=== PATIENT | female | born 1950 | race Caucasian/White ===

== ENCOUNTER 2020-03-05 13:30 | Inpatient (IN) | payer MEDICARE ==
[~2020-03-05] VITALS: Ht 157.5 cm; Wt 77.0 kg
[~2020-03-05 13:30] MED LIST: AMLO2.5T2 PO; ANAS1TAB24 PO; ASPI-1265 PO; CALC-1072 PO; CETI10TA15 PO; CYAN500T64 PO; FLAX100032 PO; LACT1CAP65 PO; LEVO125T PO; MULT-1085 PO; OMEG-15 PO; TURM500C4 PO; UBID300C PO; VITA0.4T18 PO
[2020-03-10] VITALS (23 sets, daily range): BP systolic 85–144; BP diastolic 41–77
[2020-03-10] MEDS ORDERED: ringers solution, lacted 1,000 ML IV SCH ×2 (05:00→07:35)
[2020-03-10] MEDS ORDERED: famotidine 20mg tablet PO ONE (05:30)
[2020-03-10] MEDS ORDERED: ceFAZolin 2gm in dextrose, iso 50 ML IV ONE (05:30)
[2020-03-10] MEDS ORDERED: proCHLORperazine 10 MG/2 ml inj IV PRN (07:35)
[2020-03-10] MEDS ORDERED: morphine 2 MG/ML inj. syringe IV PRN (07:35)
[2020-03-10] MEDS ORDERED: ondansetron/PF 4mg/2ml inj IV PRN ×2 (07:35→16:40)
[2020-03-10] MEDS ORDERED: meperidine/PF 25mg/ml syringe IV PRN ×2 (07:35)
[2020-03-10] MEDS ORDERED: morphine 4 MG/ML inj SYRINge IV PRN (07:35)
[2020-03-10] MEDS ORDERED: propofol inj 20 ML IV ONE (11:55)
[2020-03-10] MEDS ORDERED: rocuronium 10mg/ml inj IV ONE ×2 (11:56→14:15)
[2020-03-10] MEDS ORDERED: fentaNYL /PF 50mcg/ml 5ml ampule ONE (11:57)
[2020-03-10] MEDS ORDERED: midazolam 2 mg/2 ml injection ONE (11:57)
[2020-03-10] MEDS ORDERED: BUPIVAcaine/PF 2.5 mg/ml (0.25%) 30ml vial ONE (12:00)
[2020-03-10] MEDS ORDERED: BUPIVACAINE liposomal/PF 13.3 MG/ML vial IM ONE (12:00)
[2020-03-10] MEDS ORDERED: BUPIVAcaine/PF 2.5mg/ml (0.25%) 10ml vial ONE (12:00)
[2020-03-10] MEDS ORDERED: ePHEDrine 50MG/ML INJ. ONE (12:08)
[2020-03-10] MEDS ORDERED: glycopyrrolate 0.2mg/ml inj ONE (12:08)
[2020-03-10] MEDS ORDERED: sevoflurane 250ml liquid IH ONE (12:08)
[2020-03-10] MEDS ORDERED: meperidine/PF 50mg/ml syringe ONE (16:21)
--- NOTE | 2020-03-10 16:30 | NUR ---
Received from OR via BED , accompanied by Anesthesiologist DR FIGUEROA and report given by Anesthesiolgist. PATIENT WAKING UP, S/S OF PAIN SEE EMAR, SHE IS STRUGGLING TO CLIMB OUT OF BED AND CONFUSED. CENTRAL LINE TO RIGHT NECK, ART LINE TO LUE, V/S WNL, NEUROVASCULAR CHECKS INTACT. F/C DRAINGNI CLEAR YELLOW URINE, 20G LUE, CHEST TUBE TO 20CM SUCTION RIGHT SIDE WITH NO LEAKS DETECTED CDI W/ MINIMAL OUTPUT AT THIS TIME. CHEST XRY TO FOLLOW W/ ABG.
[2020-03-10] MEDS: meperidine/PF 25mg/ml syringe IV PRN ×3 (16:39→16:55)
[2020-03-10] MEDS ORDERED: ketorolac trometh. 30mg/ml inj. IV ONE (16:40)
[2020-03-10] MEDS ORDERED: acetaminophen 1,000mg/100ml IV 100 ML IV ONE (16:40)
[2020-03-10] MEDS ORDERED: HYDROmorphone 1 mg/ml syringe IV PRN (16:45)
[2020-03-10 17:06] LABS: ABG BASE EXCESS -4.2 mmol/L (-2.0-2.0); ABG OXYGEN SATURATION 96.9 % (94-97); ABG PCO2 (T) 50.8 mmHg (32.0-45.0); ABG PO2 (T) 96.6 mmHg (75.0-100.0); FCOHb 0.1 % (0.0-3.9); FLOW 10 L/min; FO2Hb 96.8 % (94-97); TOTAL HEMOGLOBIN 12.6 G/dl (12.0-16.0)
--- NOTE | 2020-03-10 17:30 | NUR ---
PATIENT ORIENTED X4, INTERMITENT PAIN SEE EMAR, CENTRAL LINE TO RIGHT NECK, ART LINE TO LUE D/C, V/S WNL, NEUROVASCULAR CHECKS INTACT. F/C DRAINING CLEAR YELLOW URINE, 20G LUE, CHEST TUBE TO 20CM SUCTION RIGHT SIDE WITH NO LEAKS DETECTED CDI W/ MINIMAL OUTPUT AT THIS TIME.PATIENT TAKEN TO [facility] 311 WITH ALL BELONGINGS AND HOOKED UP TO MONITORS IN ROOM AND REPORT GIVEN TO JOCY MCNAIR WHO HAS TAKEN OVER PATIENT CARE.
--- NOTE | 2020-03-10 17:40 | NUR ---
RECEIVED PATIENT VIA BED FROM OR RECOVERY TO ROOM 311. PATIENT DROWSY; HOWEVER, RESPONDS APPROPRIATELY TO QUESTIONS. PLACED RT CHEST TUBE TO 20 CM SUCTION, NO AIR LEAK NOTED. CHEST TUBE AND DRESSING INTACT. TELE MONITOR SHOWS SINUS RHYTHM. BED LOW AND LOCKED CALL LIGHT IN REACH. REPORTED OFF TO [employer] OPERATOR. Addendum: 03/10/20 at 1927 by Linnette Nuñez RN Amended: Links added.
--- NOTE | 2020-03-10 18:50 | NUR ---
Patient in room MED 311. I have received report from Brad, and had the opportunity to ask questions and assume patient care.
[2020-03-10] MEDS: potassium CL 20mEq in D5-1/2NS 1,000 ML IV SCH (21:43)
[2020-03-10] MEDS: HYDROcodone/acetaminophen 10/325mg tab PO PRN (21:44)
[2020-03-11] MEDS ORDERED: ceFAZolin inj. 1,000 MG in dextrose 5%-water 50ml 50 ML IV SCH ×2
[2020-03-11] MEDS: potassium CL 20mEq in D5-1/2NS 1,000 ML IV SCH ×3 (00:40→16:40)
[2020-03-11] MEDS: gabapentin 400mg capsule PO SCH ×4 (00:59→23:55)
[2020-03-11] MEDS: ketorolac trometh. 30mg/ml inj. IV PRN ×2 (01:04→10:32)
[2020-03-11 01:33] LABS: BASOPHILS % (AUTO) 0.3 % (0-1); EOSINOPHILS % (AUTO) 0 % (0-6); HEMATOCRIT 32.5 % (35.0-45.0); HEMOGLOBIN 11.5 g/dl (12.0-16.0); LYMPHOCYTES # (AUTO) 0.8 X10'3 (1.1-4.8); LYMPHOCYTES % (AUTO) 5.6 % (21-51); MEAN CORPUSCULAR HEMOGLOBIN 31.9 PG (27.0-31.0); MEAN CORPUSCULAR HGB CONC 35.3 g/dL (33.0-36.5); MEAN CORPUSCULAR VOLUME 90.2 FL (78-98); MEAN PLATELET VOLUME 6.8 FL (7.4-10.4); MONOCYTES # (AUTO) 0.7 X10'3 (0-0.9); MONOCYTES % (AUTO) 4.6 % (2-12); NEUTROPHILS % (AUTO) 89.5 % (42-75); PLATELET COUNT 297 X10'3 (140-440); RED BLOOD COUNT 3.61 X10'6 (4.20-5.60); WHITE BLOOD COUNT 14.5 X10'3 (4.5-11.0)
[2020-03-11 01:39] LABS: ANION GAP 9 (8-16); BLOOD UREA NITROGEN 11 MG/DL (7-18); CHLORIDE 106 MMOL/L (99-107); CREATININE 0.84 MG/DL (0.40-0.90); GLUCOSE 137 MG/DL (70-104); SODIUM 140 MMOL/L (135-145); TOTAL CARBON DIOXIDE 25.5 MMOL/L (24-32)
[2020-03-11 01:40] LABS: ALBUMIN 3.5 G/DL (3.4-5.0); BUN/CREATININE RATIO 13.1 (6.6-38.0); CALCIUM 8.6 MG/DL (8.5-10.1); eGFR 67 ML/MIN
[2020-03-11 02:00] VITALS: BP 97/42
[2020-03-11] MEDS: HYDROcodone/acetaminophen 10/325mg tab PO PRN ×2 (05:10→19:59)
[2020-03-11 06:00] VITALS: BP 104/44
--- NOTE | 2020-03-11 06:33 | NUR ---
Problems reprioritized. Patient report given to Shaneka, questions answered & plan of care reviewed with .
[2020-03-11] MEDS ORDERED: ceFAZolin/D5W- 1GM premix 50 ML IV ONE (08:00)
[2020-03-11 10:00] VITALS: BP 106/48
[2020-03-11] MEDS: albuterol 2.5 MG/3 ML nebule NEB SCH ×3 (10:32→19:24)
[2020-03-11] MEDS ORDERED: furosemide 20 MG/2 ML vial IV ONE (11:05)
[2020-03-11 14:00] VITALS: BP 104/44
[2020-03-11 18:00] VITALS: BP 111/52
--- NOTE | 2020-03-11 18:30 | NUR ---
Patient in room MED 311. I have received report from Shaneka, and had the opportunity to ask questions and assume patient care.
[2020-03-11 22:00] VITALS: BP 110/44
[2020-03-12] MEDS: ketorolac trometh. 30mg/ml inj. IV PRN ×4 (00:29→22:57)
--- NOTE | 2020-03-12 00:51 | NUR ---
the patient's central line removed. Patient tolerated well. Patient is a retired nurse. Requested to remove her villarreal in the morning not right now despite explaining the risk associated with keeping the villarreal for longer period than needed.
[2020-03-12 02:00] VITALS: BP 120/53
[2020-03-12 06:00] VITALS: BP 126/57
--- NOTE | 2020-03-12 06:29 | NUR ---
Problems reprioritized. Patient report given to Shaneka, questions answered & plan of care reviewed with .
--- NOTE | 2020-03-12 06:35 | NUR ---
unable to complete the care plan due to problems with PAAY
[2020-03-12] MEDS: albuterol 2.5 MG/3 ML nebule NEB SCH ×4 (07:37→19:42)
[2020-03-12 07:45] LABS: BASOPHILS % (AUTO) 0.2 % (0-1); EOSINOPHILS # (AUTO) 0.1 X10'3 (0-0.9); EOSINOPHILS % (AUTO) 1.1 % (0-6); HEMATOCRIT 30.3 % (35.0-45.0); HEMOGLOBIN 10.6 g/dl (12.0-16.0); LYMPHOCYTES # (AUTO) 1.3 X10'3 (1.1-4.8); LYMPHOCYTES % (AUTO) 14.9 % (21-51); MEAN CORPUSCULAR HEMOGLOBIN 31.1 PG (27.0-31.0); MEAN CORPUSCULAR HGB CONC 34.9 g/dL (33.0-36.5); MEAN CORPUSCULAR VOLUME 89.2 FL (78-98); MEAN PLATELET VOLUME 7.2 FL (7.4-10.4); MONOCYTES # (AUTO) 0.7 X10'3 (0-0.9); MONOCYTES % (AUTO) 8.3 % (2-12); NEUTROPHILS # (AUTO) 6.5 X10'3 (1.8-7.7); NEUTROPHILS % (AUTO) 75.5 % (42-75); PLATELET COUNT 272 X10'3 (140-440); RED BLOOD COUNT 3.39 X10'6 (4.20-5.60); RED CELL DISTRIBUTION WIDTH 14.9 % (11.5-14.5); WHITE BLOOD COUNT 8.6 X10'3 (4.5-11.0)
[2020-03-12 07:56] LABS: ALBUMIN 3.2 G/DL (3.4-5.0); ANION GAP 9 (8-16); BLOOD UREA NITROGEN 8 MG/DL (7-18); BUN/CREATININE RATIO 10.8 (6.6-38.0); CALCIUM 8.7 MG/DL (8.5-10.1); CHLORIDE 104 MMOL/L (99-107); CREATININE 0.74 MG/DL (0.40-0.90); GLUCOSE 110 MG/DL (70-104); POTASSIUM 3.7 MMOL/L (3.5-5.1); SODIUM 140 MMOL/L (135-145); TOTAL CARBON DIOXIDE 27.1 MMOL/L (24-32); eGFR 78 ML/MIN
[2020-03-12] MEDS ORDERED: non-formulary drug (Ubidecarenone (Co Q-10) 1 CAP) PO SCH (08:00)
[2020-03-12] MEDS: gabapentin 400mg capsule PO SCH ×2 (08:00→16:00)
[2020-03-12] MEDS: multivitamins, therapeutics tablet PO SCH (08:00)
[2020-03-12] MEDS: OMEGA-3/DHA/EPA/FISH OIL 1 EACH CAPSULE.DR PO SCH ×2 (08:00→10:06)
[2020-03-12] MEDS: anastrozole 1 MG tablet PO SCH (08:00)
[2020-03-12] MEDS ORDERED: FLAXSEED OIL 1400 MG PO SCH (08:00)
[2020-03-12 10:00] VITALS: BP 106/47
[2020-03-12] MEDS: aspirin 81mg tab.chew PO SCH (10:05)
[2020-03-12] MEDS: calcium carbonate/vitamin D3 tablet PO SCH (10:06)
[2020-03-12] MEDS: levoTHYROXINE 125mcg tablet PO SCH (10:07)
[2020-03-12] MEDS: lactobacillus rhamnosus 10,000 MMU CELLS/CAPSULE PO SCH (10:07)
[2020-03-12] MEDS: HYDROcodone/acetaminophen 10/325mg tab PO PRN ×3 (10:08→21:21)
[2020-03-12] MEDS: cetirizine 10mg tablet PO SCH (10:10)
[2020-03-12 14:00] VITALS: BP 121/54
[2020-03-12 18:00] VITALS: BP 123/61
[2020-03-12 22:00] VITALS: BP 132/54
[2020-03-13] MEDS: gabapentin 400mg capsule PO SCH
[2020-03-13 02:00] VITALS: BP 145/61
[2020-03-13] MEDS: HYDROcodone/acetaminophen 10/325mg tab PO PRN ×2 (02:49→10:45)
[2020-03-13 06:00] VITALS: BP 148/65
[2020-03-13 06:06] LABS: BASOPHILS % (AUTO) 0.3 % (0-1); EOSINOPHILS # (AUTO) 0.2 X10'3 (0-0.9); EOSINOPHILS % (AUTO) 2.9 % (0-6); HEMATOCRIT 30.2 % (35.0-45.0); HEMOGLOBIN 10.5 g/dl (12.0-16.0); LYMPHOCYTES # (AUTO) 1.2 X10'3 (1.1-4.8); MEAN CORPUSCULAR HEMOGLOBIN 31.1 PG (27.0-31.0); MEAN CORPUSCULAR HGB CONC 34.7 g/dL (33.0-36.5); MEAN CORPUSCULAR VOLUME 89.5 FL (78-98); MONOCYTES # (AUTO) 0.8 X10'3 (0-0.9); MONOCYTES % (AUTO) 10.5 % (2-12); NEUTROPHILS # (AUTO) 5.3 X10'3 (1.8-7.7); NEUTROPHILS % (AUTO) 70.3 % (42-75); PLATELET COUNT 274 X10'3 (140-440); RED BLOOD COUNT 3.38 X10'6 (4.20-5.60); RED CELL DISTRIBUTION WIDTH 14.9 % (11.5-14.5); WHITE BLOOD COUNT 7.6 X10'3 (4.5-11.0)
[2020-03-13 06:14] LABS: ALBUMIN 3.1 G/DL (3.4-5.0); ANION GAP 5 (8-16); BLOOD UREA NITROGEN 11 MG/DL (7-18); BUN/CREATININE RATIO 13.3 (6.6-38.0); CALCIUM 9.3 MG/DL (8.5-10.1); CHLORIDE 107 MMOL/L (99-107); CREATININE 0.83 MG/DL (0.40-0.90); GLUCOSE 115 MG/DL (70-104); POTASSIUM 4.1 MMOL/L (3.5-5.1); SODIUM 142 MMOL/L (135-145); TOTAL CARBON DIOXIDE 29.6 MMOL/L (24-32); eGFR 68 ML/MIN
[2020-03-13] MEDS: albuterol 2.5 MG/3 ML nebule NEB SCH (07:17)
[2020-03-13] MEDS: anastrozole 1 MG tablet PO SCH (08:00)
[2020-03-13] MEDS: levoTHYROXINE 125mcg tablet PO SCH (08:42)
[2020-03-13] MEDS: aspirin 81mg tab.chew PO SCH (08:42)
[2020-03-13] MEDS: lactobacillus rhamnosus 10,000 MMU CELLS/CAPSULE PO SCH (08:42)
[2020-03-13] MEDS: multivitamins, therapeutics tablet PO SCH (08:42)
[2020-03-13] MEDS: calcium carbonate/vitamin D3 tablet PO SCH (08:42)
[2020-03-13] MEDS: cetirizine 10mg tablet PO SCH (08:42)
[2020-03-13] MEDS: OMEGA-3/DHA/EPA/FISH OIL 1 EACH CAPSULE.DR PO SCH (08:44)
[2020-03-13] MEDS: ketorolac trometh. 30mg/ml inj. IV PRN (08:44)
[2020-03-13 10:00] VITALS: BP 134/58
--- NOTE | 2020-03-13 11:15 | NUR ---
Discharge orders received. Pt has remained stable VSS. Chest tube removed by MD. Incisions are free from anty s/s complications. IV d/mansoor no s/s of complications. Discharge instructuions given pt stated understanding. All belongings accounted for. Pt walked with nurse to front entrance and was going home with her mother driving private vehicle.
== END 2020-03-13 11:15 | disposition home or self-care (01) | DRG 165 ==
LOC: PAS IN 03-10 07:11 → EDSTATUS 03-10 09:15 → MED 3N 03-10 17:35
PROVIDERS: ADMIT Surgery; ATTEND Surgery
PROC: 07B70ZZ Excision of Thorax Lymphatic, Open Approach (ICD-10-PCS; 2020-03-10)
PROC: 8E0W0CZ Robotic Assisted Procedure of Trunk Region, Open Approach (ICD-10-PCS; 2020-03-10)
PROC: 0BTD0ZZ Resection of Right Middle Lung Lobe, Open Approach (ICD-10-PCS; principal; 2020-03-10 12:08)
DX: D3A.090 Benign carcinoid tumor of the bronchus and lung (principal)
CPT/HCPCS: 36415; 36600; 71045; 71046; 80048; 80053; 81003; 82803; 82948; 84443; 85018; 85025; 85610; 85730; 86870; 86880; 86885; 86900; 86901; 86922; 87081; 87635; 93005; 94010; 94640; 94760; A4618; A6258; A6402; A6449; A7000; A7048; C1758; C9290; G0378; J0131; J0690; J1885; J1940; J2175; J2250; J2270; J2405; J2704; J3010; J3480; J3490; J7030; J7040; J7120

== ENCOUNTER 2020-05-06 08:05 | Day surgery (SDC) | payer MEDICARE ==
[2020-05-01 15:07] LABS: CLARITY,URINE CLEAR (Clear); COLOR,URINE YELLOW (Yellow); GLUCOSE, URINE NEGATIVE (Neg); KETONES,URINE NEGATIVE (Neg); LEUKOCYTE ESTERASE ,URINE NEGATIVE (Neg); NITRITES, URINE NEGATIVE (Neg); OCCULT BLOOD,URINE NEGATIVE (Neg); PROTEIN,URINE NEGATIVE (Neg)
[2020-05-01 15:08] LABS: BASOPHILS % (AUTO) 0.5 % (0-1); EOSINOPHILS # (AUTO) 0.2 X10'3 (0-0.9); LYMPHOCYTES # (AUTO) 1.9 X10'3 (1.1-4.8); LYMPHOCYTES % (AUTO) 22.6 % (21-51); MEAN CORPUSCULAR HGB CONC 34.8 g/dL (33.0-36.5); MEAN CORPUSCULAR VOLUME 89.1 FL (78-98); MEAN PLATELET VOLUME 6.9 FL (7.4-10.4); MONOCYTES # (AUTO) 0.6 X10'3 (0-0.9); MONOCYTES % (AUTO) 7.2 % (2-12); NEUTROPHILS # (AUTO) 5.6 X10'3 (1.8-7.7); NEUTROPHILS % (AUTO) 67.7 % (42-75); PRE OP HEMATOCRIT 38.3 % (35.0-45.0); PRE OP HEMOGLOBIN 13.4 g/dL (12.0-16.0); PRE OP PLATELET COUNT 312 X10'3 (140-440); RED CELL DISTRIBUTION WIDTH 13.9 % (11.5-14.5)
[2020-05-01 15:12] LABS: UA COLLECTION TYPE VOIDED
[2020-05-01 15:22] LABS: ALBUMIN 4.2 G/DL (3.4-5.0); ALBUMIN/GLOBULIN RATIO 1.2 (1.1-1.5); ALKALINE PHOSPHATASE 89 IU/L (46-116); BLOOD UREA NITROGEN 17 MG/DL (7-18); BUN/CREATININE RATIO 20.5 (6.6-38.0); CALCIUM 9.4 MG/DL (8.5-10.1); CHLORIDE 104 MMOL/L (99-107); CREATININE 0.83 MG/DL (0.40-0.90); PRE OP ALT 32 U/L (30-65); PRE OP ANION GAP 8 (8-16); PRE OP AST 13 U/L (10-37); PRE OP BILIRUB, TOTAL 0.6 MG/DL (0.0-1.0); PRE OP GLUCOSE 99 MG/DL (70-104); PRE OP POTASSIUM 3.9 MMOL/L (3.4-5.1); PRE OP SODIUM 142 MMOL/L (135-145); TOTAL CARBON DIOXIDE 29.6 MMOL/L (24-32); TOTAL PROTEIN 7.6 G/DL (6.4-8.2); eGFR 68 ML/MIN
[~2020-05-06] VITALS: Ht 157.5 cm; Wt 72.6 kg
[2020-05-06] VITALS (10 sets, daily range): BP systolic 134–161; BP diastolic 63–92
[~2020-05-06 08:05] MED LIST changes: +BUPIVAcaine/PF 2.5 mg/ml (0.25%) 30ml vial ONE; -CYAN500T64 PO; -FLAX100032 PO; +INDOCYANINE GREEN 25 MG/10 ML VIAL IV ONE; -OMEG-15 PO; -TURM500C4 PO; +ceFOXitin 2GM-NS 100mL ADDvant 100 ML IV ONE; +famotidine 20mg tablet PO ONE; +ringers solution, lacted 1,000 ML IV SCH
[2020-05-06] MEDS ORDERED: BUPIVAcaine/PF 2.5 mg/ml (0.25%) 30ml vial ONE (12:29)
[2020-05-06] MEDS ORDERED: sevoflurane 250ml liquid IH ONE (13:06)
[2020-05-06] MEDS ORDERED: midazolam 2 mg/2 ml injection ONE (13:09)
[2020-05-06] MEDS ORDERED: propofol inj 20 ML IV ONE (13:09)
[2020-05-06] MEDS ORDERED: rocuronium 10mg/ml inj IV ONE (13:09)
[2020-05-06] MEDS ORDERED: fentaNYL/PF 50MCG/1 ML 2ML syringe ONE (13:09)
[2020-05-06] MEDS ORDERED: ondansetron/PF 4mg/2ml inj ONE (13:47)
[2020-05-06] MEDS ORDERED: dexamethasone sod phosphate 4mg/ml inj. ONE (13:47)
[2020-05-06] MEDS ORDERED: neostigmine methylsulfate 1 MG/ML 10ml vial ONE (13:48)
[2020-05-06] MEDS ORDERED: glycopyrrolate 0.2mg/ml inj ONE (13:48)
[2020-05-06] MEDS ORDERED: morphine 4 MG/ML inj SYRINge ONE ×2 (14:29→14:35)
--- NOTE | 2020-05-06 14:30 | NUR ---
Received from OR via BED , accompanied by Anesthesiologist DR GODWIN and report given by Anesthesiolgist. PATIENT WAKING UP, 8/10 PAIN SEE EMAR, V/S WNL, NEUROVASCULAR CHECKS INTACT, 20G PIV RUE, SCD ON, BANDAIDS TO LAP SIGHTS OF ABDOMEN CDI
[2020-05-06] MEDS ORDERED: meperidine/PF 25mg/ml syringe IV PRN ×2 (14:40)
[2020-05-06] MEDS ORDERED: ringers solution, lacted 1,000 ML IV SCH (14:40)
[2020-05-06] MEDS ORDERED: ondansetron/PF 4mg/2ml inj IV PRN (14:40)
[2020-05-06] MEDS ORDERED: morphine 4 MG/ML inj SYRINge IV PRN (14:40)
[2020-05-06] MEDS ORDERED: HYDROcodone/acetaminophen 10/325mg tab PO ONE (15:00)
--- NOTE | 2020-05-06 15:50 | NUR ---
PATIENT A&OX4, DENIES PAIN, V/S WNL, NEUROVASCULAR CHECKS INTACT, 20G PIV RUE D/C, SCD OFF, BANDAIDS TO LAP SIGHTS OF ABDOMEN CDI.. I HAVE REVIEWED D/C INSTRUCTIONS WITH PATIENT AND FAMILY HAVE VERBALIZED UNDERSTANDING.PATIENT WAS D/C HOME WITH ALL BELONGINGS AND FAMILY GAVE TRANSPORT HOME
== END 2020-05-06 15:50 | disposition home or self-care (01) ==
LOC: PAS 08:05
PROVIDERS: ATTEND Surgery
DX: K80.10 Calculus of gallbladder with chronic cholecystitis without obstruction (principal); R10.10 Upper abdominal pain, unspecified; I10 Essential (primary) hypertension; E03.9 Hypothyroidism, unspecified; E66.9 Obesity, unspecified; Z85.3 Personal history of malignant neoplasm of breast; Z79.899 Other long term (current) drug therapy; Z90.710 Acquired absence of both cervix and uterus; Z98.890 Other specified postprocedural states; Z88.5 Allergy status to narcotic agent; Z88.8 Allergy status to other drugs, medicaments and biological substances; Z88.1 Allergy status to other antibiotic agents; Z87.891 Personal history of nicotine dependence; Z72.89 Other problems related to lifestyle; Z20.822 Contact with and (suspected) exposure to COVID-19
CPT/HCPCS: 36415; 47562; 80053; 81003; 82948; 85025; 87635; J0694; J1100; J2175; J2250; J2270; J2405; J2704; J2710; J3010; J3490; J7120; 88304; A4215; A4618; A7000